=== PATIENT | female | born 1985 | race Caucasian/White ===

== ENCOUNTER → 2022-01-25 11:03 | Outpatient (BNVA) | payer BC, SELFPAY | PROVIDERS: PCP Nurse Practitioner Family; Visit Provider Nurse Practitioner Family | DX: Z12.4 Encounter for screening for malignant neoplasm of cervix (principal); Z78.9 Other specified health status | CPT/HCPCS: 88175 ==

== ENCOUNTER → 2024-08-26 14:14 | Outpatient (BNVA) | payer BC, SELFPAY | PROVIDERS: PCP Nurse Practitioner Family; Visit Provider Nurse Practitioner Family | DX: N39.0 Urinary tract infection, site not specified (principal); N93.9 Abnormal uterine and vaginal bleeding, unspecified; R53.83 Other fatigue; N92.1 Excessive and frequent menstruation with irregular cycle; Z96.22 Myringotomy tube(s) status; Z90.89 Acquired absence of other organs | CPT/HCPCS: 80053; 81000; 84439; 84443; 85025; 87070; 87205; 88175 ==

== ENCOUNTER 2024-09-03 12:01 | Outpatient (CLI) | payer BC, SELFPAY ==
--- NOTE | 2024-09-03 12:45 | US_ITS ---
WS: [id number] US pelvic complete* [id number] HISTORY: R10.2 - Pelvic and perineal pain COMPARISON: 10/28/2009 Uterus: 9.7 cm x 6.6 cm x 5.6 cm. Normal size anteverted uterus. No fibroid or mass. Endometrium: 0.7 cm. Normal trilaminar endometrium. Right ovary: Not visualized. No adnexal mass. Left ovary: 2.9 cm x 1.8 cm x 1.7 cm. Normal size and vascularity, no cystic or solid masses. Small follicle LEFT ovary. No free fluid in the cul-de-sac. US/US pelvic complete* [id number] IMPRESSION: 1. Normal uterus and endometrium. 2. RIGHT ovary not identified. No adnexal mass. 3. Normal LEFT ovary.
== END 2024-09-03 12:02 | disposition home or self-care (01) ==
PROVIDERS: PCP Nurse Practitioner Family; Visit Provider Nurse Practitioner Family
DX: R10.2 Pelvic and perineal pain (principal)
CPT/HCPCS: 76856

== ENCOUNTER 2024-09-10 14:42 | Outpatient (CLI) | payer BC, SELFPAY ==
--- NOTE | 2024-09-10 15:00 | USR_ITS ---
PROCEDURE INFORMATION: Exam: US Soft Tissue Head and Neck, Thyroid Exam date and time: 09/10/2024 3:14 PM Age: 39 years old Clinical indication: Abnormal findings; Abnormal thyroid lab test; Additional info: R79.89 - other specified abnormal findings of blood chemi. . . TECHNIQUE: Imaging protocol: Real-time ultrasound scan of the neck with image documentation. Exam focused on the thyroid. COMPARISON: No relevant prior studies available. FINDINGS: Right thyroid lobe: The right lobe of the thyroid measures 4.7 x 1.5 x 1.3 cm and is diffusely heterogeneous. No discrete right thyroid nodules are identified. Left thyroid lobe: The left lobe of the thyroid measures 5.2 x 1.3 x 1.9 cm and is diffusely heterogeneous. No discrete left thyroid nodules are identified. Isthmus: No nodules. US/US thyroid [id number] IMPRESSION: Diffusely heterogeneous echotexture of the thyroid which can be associated with thyroiditis but there is no hypervascularity to suggest hyperacute thyroiditis. No thyroid nodules identified.
== END 2024-09-10 14:43 | disposition home or self-care (01) ==
LOC: RAD 14:43
PROVIDERS: PCP Nurse Practitioner Family; Visit Provider Nurse Practitioner Family
DX: R79.89 Other specified abnormal findings of blood chemistry (principal); R93.89 Abnormal findings on diagnostic imaging of other specified body structures
CPT/HCPCS: 76536

== ENCOUNTER → 2024-11-04 09:23 | Outpatient (BNVA) | payer BC, SELFPAY | PROVIDERS: PCP Nurse Practitioner Family; Visit Provider Internal Medicine | DX: E05.90 Thyrotoxicosis, unspecified without thyrotoxic crisis or storm (principal) | CPT/HCPCS: 84432; 84439; 84443; 84480; 86376; 86800 ==

== ENCOUNTER → 2024-11-18 10:57 | Outpatient (BNVA) | payer BC, SELFPAY | PROVIDERS: PCP Nurse Practitioner Family; Visit Provider Internal Medicine | DX: E05.90 Thyrotoxicosis, unspecified without thyrotoxic crisis or storm (principal); D64.9 Anemia, unspecified | CPT/HCPCS: 84439; 84443; 84480; 85025 ==

== ENCOUNTER → 2025-03-02 11:20 | Outpatient (BNVA) | payer BC, SELFPAY | PROVIDERS: PCP Nurse Practitioner Family; Visit Provider Nurse Practitioner Family | DX: I10 Essential (primary) hypertension (principal); R53.83 Other fatigue; E05.90 Thyrotoxicosis, unspecified without thyrotoxic crisis or storm | CPT/HCPCS: 80053; 84439; 84443; 84481; 85025 ==

== ENCOUNTER → 2025-03-31 10:53 | Outpatient (BNVA) | payer BC, SELFPAY | PROVIDERS: PCP Nurse Practitioner Family; Visit Provider Nurse Practitioner Family | DX: D50.0 Iron deficiency anemia secondary to blood loss (chronic) (principal) | CPT/HCPCS: 85025 ==